=== PATIENT | female | born 1960 | race Caucasian/White ===

== ENCOUNTER → 2018-04-13 | Outpatient (CLI) | payer BC ==
--- NOTE | 2018-04-13 11:48 | XR ---
EXAMINATION TYPE: XR cervical spine comp DATE OF EXAM: 04/13/2018 CLINICAL HISTORY: pain COMPARISON: NONE TECHNIQUE: Frontal, lateral, oblique, swimmers, and open mouth view of the cervical spine are obtaine d. FINDINGS: The cervical spine is visualized in its entirety from C1 thru the top of T1 level. It is s atisfactory in alignment without evidence of acute fracture or dislocation. The pre-vertebral soft t issue appears within normal limits. Mild degenerative disc space narrowing and spondylosis. The C1-C2 articulation is unremarkable on the open mouth view. The oblique images are within normal limits. IMPRESSION: No acute fracture or dislocation is seen in the cervical spine.ICD 10 NO FRACTURE, INITI AL EVALUATION
== END | disposition home or self-care (01) ==
LOC: RADXRMAIN 11:10
PROVIDERS: ATTEND Family Medicine
DX: M54.2 Cervicalgia (principal)
CPT/HCPCS: 72050

== ENCOUNTER → 2019-01-20 | Outpatient (CLI) | payer BC ==
--- NOTE | 2019-01-20 09:42 | CTL ---
EXAMINATION TYPE: CT Low Dose Lung DATE OF EXAM ORDERED: 01/20/2019 HISTORY: 58-year-old female personal history tobacco use. Lung cancer screening CT DLP: [address] CTDI: 2.4 mGy Automated exposure control for dose reduction was used. SCREENING VISIT: Baseline COMPARISON: None TECHNIQUE: Low dose computed tomography scan was performed through the chest at 1 mm thick sections a nd reconstructed images in the coronal and sagittal plane. Additional coronal MIP reconstruction perf ormed. CT DIAGNOSTIC QUALITY: Satisfactory FINDINGS: Heart normal size without pericardial effusion. Mild coronary vessel calcifications are present. Mild atherosclerotic arch calcifications with conventional branching anatomy. Scattered nonenlarged mediastinal lymph nodes measuring up to 5 mm. Visualized upper abdomen shows no gross body. Lungs show prominent dependent atelectasis and mild centrilobular emphysema. No consolidation or pleural effusion. No suspicious pulmonary nodule or mass. Bones: No osseous destructive process. IMPRESSION: 1. LungRADS 1 - negative. 2. COPD with mild emphysema. RECOMMENDATION: 1. Continue annual low-dose lung cancer screening CT. 2. Smoking cessation. FOLLOW UP CT CHEST RECOMMENDATION: [address] LUNG RAD: Lung-Rad 1 Negative
== END ==
LOC: RADCTMAIN 08:22
PROVIDERS: ATTEND Family Medicine
DX: Z12.2 Encounter for screening for malignant neoplasm of respiratory organs (principal); Z87.891 Personal history of nicotine dependence

== ENCOUNTER → 2020-07-16 | Outpatient (CLI) | payer OTHER ==
--- NOTE | 2020-07-16 14:26 | CTL ---
EXAMINATION TYPE: CT Low Dose Lung DATE OF EXAM ORDERED: 07/16/2020 HISTORY: . Lung cancer screening CT DLP: [address] CTDI: 2.29 mGy Automated exposure control for dose reduction was used. SCREENING VISIT: COMPARISON: 01/20/2019 TECHNIQUE: Low dose computed tomography scan was performed through the chest at 1 mm thick sections a nd reconstructed images in the coronal plane at [address] DIAGNOSTIC QUALITY: Satisfactory FINDINGS: Mild cardiomegaly without pericardial effusion. Mild coronary vessel calcifications are present. Mild atherosclerotic arch calcifications with conventional branching anatomy. Scattered nonenlarged m ediastinal lymph nodes measuring up to 5 mm. Visualized upper abdomen shows no gross body. Lungs show prominent dependent atelectasis and mild centrilobular emphysema. No consolidation or pleu ral effusion. There is a stable 4 mm left upper lobe pulmonary nodule axial image 70. There is a calcification within the breast bilaterally. Bones: No osseous destructive process. IMPRESSION: 1. COPD with changes of emphysema. 2. Coronary artery atherosclerotic changes. 3. There is a stable 4 mm left upper lobe pulmonary nodule too small to characterize. FOLLOW UP CT CHEST RECOMMENDATION: Continue annual low dose lung cancer screening CT. CT LUNG RAD: Lung-Rad 2 Benign Appearance or Behavior
== END | disposition home or self-care (01) ==
LOC: RADCTMAIN 13:15
PROVIDERS: ATTEND Family Medicine
DX: Z12.2 Encounter for screening for malignant neoplasm of respiratory organs (principal); J43.9 Emphysema, unspecified; I25.10 Atherosclerotic heart disease of native coronary artery without angina pectoris; R91.1 Solitary pulmonary nodule; F17.210 Nicotine dependence, cigarettes, uncomplicated

== ENCOUNTER 2022-05-29 09:15 | Day surgery (SDC) | payer OTHER ==
[~2022-05-29 09:15] MED LIST: LACTATED RINGERS 1,000 ML IV SCH; LIDOCAINE 1% (10MG/ML) FOR IV START INTRADERMA PRN
[2022-05-29 09:48] VITALS: TEMP 97
[2022-05-29] MEDS ORDERED: LACTATED RINGERS 1,000 ML IV ONE (09:54)
[2022-05-29] MEDS ORDERED: LIDOCAINE 2% INJ 20 MG/ML (2 ML VIAL) ONE (10:14)
[2022-05-29] MEDS ORDERED: PROPOFOL 10 MG/ML 20 ML VIAL IV ONE (10:14)
--- NOTE | 2022-05-29 10:27 | P.GSHP ---
History of Present Illness H&P Date: 05/29/22 Chief Complaint: Screening colonoscopy This a 7-year-old female presents today for screening colonoscopy. Patient denies a significant GI complaints. Past Medical History Past Medical History: COPD, Hyperlipidemia, Hypertension, Musculoskeletal Disorder, Thyroid Disorder Additional Past Medical History / Comment(s): chronic back pain History of Any Multi-Drug Resistant Organisms: None Reported Past Surgical History: Hernia Repair, Orthopedic Surgery Additional Past Surgical History / Comment(s): right shoulder surg. Past Anesthesia/Blood Transfusion Reactions: No Reported Reaction Smoking Status: Current every day smoker Medications and Allergies Home Medications Medication Instructions Recorded Confirmed Type Brexpiprazole [Rexulti] 2 mg PO DAILY 05/28/22 05/29/22 History Levothyroxine Sodium [Synthroid] 50 mcg PO DAILY 05/28/22 05/29/22 History Omeprazole [PriLOSEC] 20 mg PO AC-BRKFST 05/28/22 05/29/22 History PARoxetine HCL [Paxil] 40 mg PO DAILY 05/28/22 05/29/22 History Pregabalin [Lyrica] 200 mg PO BID 05/28/22 05/29/22 History Simvastatin [Zocor] 20 mg PO HS 05/28/22 05/29/22 History Allergies Allergy/AdvReac Type Severity Reaction Status Date / Time Sulfa (Sulfonamide Allergy Rash/Hives Verified 05/29/22 09:38 Antibiotics) Penicillins AdvReac headache Verified 05/29/22 09:38 Surgical - Exam Vital Signs Temp Pulse Resp BP Pulse Ox 97.0 F L 74 14 131/86 95 05/29/22 09:47 05/29/22 09:47 05/29/22 09:47 05/29/22 09:47 05/29/22 09:47 - General well developed, well nourished, no distress - Eyes PERRL - ENT normal pinna - Neck no masses - Respiratory normal expansion - Cardiovascular Rhythm: regular - Abdomen Abdomen: soft, non tender Assessment and Plan Assessment: We'll perform screening colonoscopy
--- NOTE | 2022-05-29 10:39 | P.OP ---
Date of Procedure: 05/29/22 Preoperative Diagnosis: Screening colonoscopy Postoperative Diagnosis: Normal colon except for a few diverticula External hemorrhoids Procedure(s) Performed: Colonoscopy Anesthesia: MAC Surgeon: Tim Roberto Pathology: none sent Condition: stable Disposition: PACU Description of Procedure: The patient's placed on the endoscopy table in the lateral position. She received IV sedation. Digital rectal exam was performed which revealed external hemorrhoids. The flexible colonoscope was then placed the pain patient's anus and passed throughout the entire colon. The ileocecal valve was visualized. The cecum, ascending and transverse colon appeared normal. The descending and sigmoid colon appeared normal except for a few scattered diverticula. Scope summer back the rectum and this appeared normal scope withdrawn for patient.
[2022-05-29 10:44] VITALS: RESP 12
[2022-05-29 10:56] VITALS: BP 126/77; PULSE 61
== END 2022-05-29 11:18 | disposition home or self-care (01) ==
LOC: ORWHC2ENDO 09:15
PROVIDERS: ATTEND Surgery
DX: Z12.11 Encounter for screening for malignant neoplasm of colon (principal); K57.30 Diverticulosis of large intestine without perforation or abscess without bleeding; K64.4 Residual hemorrhoidal skin tags; J44.9 Chronic obstructive pulmonary disease, unspecified; E78.5 Hyperlipidemia, unspecified; I10 Essential (primary) hypertension; F17.200 Nicotine dependence, unspecified, uncomplicated; Z79.899 Other long term (current) drug therapy; Z79.890 Hormone replacement therapy; Z88.2 Allergy status to sulfonamides; Z88.0 Allergy status to penicillin; F32.A Depression, unspecified; K21.9 Gastro-esophageal reflux disease without esophagitis
CPT/HCPCS: 45378; J2704; J2001

== ENCOUNTER → 2025-01-09 | Outpatient (CLI) | payer BC ==
--- NOTE | 2025-01-09 19:30 | CTL ---
EXAMINATION TYPE: CT Low Dose Lung DATE OF EXAM: 01/09/2025 5:30 PM COMPARISON: None. CLINICAL INDICATION: Female, 64 years old with history of Z12.2 SCREENING F17.210 CURR SMOKER; Curren t smoker, 1 ppd x 47 years, history of tobacco use. TECHNIQUE: Multiple axial non-contrast scans were obtained from approximately the lung apices through the upper abdomen. Coronal and sagittal reformatted images were obtained. Low dose technique was uti lized. MIP were created on a separate workstation and submitted for review. CT DLP: 52 mGycm, Automated exposure control for dose reduction was used. CT Contrast: Contrast used: None Oral contrast used: None FINDINGS: Lack of intravenous contrast and low dose technique limits the evaluation of the vascular and soft ti ssue structures. LUNGS: No evidence of pulmonary fibrosis. No evidence of focal consolidation, pneumothorax or pleural effusion. Centrilobular emphysema changes. Nodules: RUL: None. RML: None. RLL: None. CONI: 5 mm series 4 image 85.. LLL: None. AIRWAY: Patent and unremarkable. HEART: Size within normal limits. Mild coronary artery calcifications present. Lipomatous hypertrophy changes of the interatrial septum. MEDIASTINUM: No gross evidence of adenopathy. VASCULATURE: No aortic aneurysm. MUSCULOSKELETAL: No acute osseous abnormalities SOFT TISSUES/LYMPH NODES: Unremarkable. LOWER NECK: No significant findings. UPPER ABDOMEN: No significant findings. IMPRESSION: 1. No clinically significant pulmonary nodules. Stable left upper lobe 5 mm pulmonary nodule back to 07/16/2020.. 2. Mild emphysema. CT LUNG RAD AND CT CHEST RECOMMENDATION: Lung-Rad 2 Benign Appearance or Behavior: Continue annual sc reening with LDCT in 12 months. S Modifier (other clinically significant findings): None Recommend smoking cessation (if current smoker), or continuation of smoking cessation (if prior smoke r). Annual screening for lung cancer with low-dose computed tomography is recommended in adults ages 55 to 77 years who have a 30 pack-year smoking history and currently smoke or have quit within the pa st 15 years. Screening should be discontinued once a person has not smoked for 15 years or develops a health problem that substantially limits life expectancy or the ability or willingness to have curat tj lung surgery. Lung rads 2021 [email or web address] [email or web address], , 01/09/2025 7:28 PM
== END | disposition home or self-care (01) ==
LOC: RADCTMAIN 16:40
PROVIDERS: ATTEND Family Medicine
DX: Z12.2 Encounter for screening for malignant neoplasm of respiratory organs (principal); J43.2 Centrilobular emphysema; F17.210 Nicotine dependence, cigarettes, uncomplicated; R91.1 Solitary pulmonary nodule
CPT/HCPCS: 71271